=== PATIENT | male | born 1990 | race Caucasian/White ===

== ENCOUNTER 2021-04-18 09:15 | Emergency (ER) | payer BC, SELFPAY ==
[~2021-04-18] VITALS: Ht 170.2 cm; Wt 81.6 kg
[2021-04-18 09:21] VITALS: BP 123/76
[2021-04-18] MEDS ORDERED: PRED20TA5 PO (09:48)
[2021-04-18] MEDS ORDERED: ONDA8TAB87 PO (09:48)
--- NOTE | 2021-04-18 09:55 | NUR ---
NOVEL SWAB COLLECTED AND WALKED TO LAB.
--- NOTE | 2021-04-18 10:41 | NUR ---
Patient discharged with v/s stable. Written and verbal after care instructions ABOUT NAUSEA AND COUGH given and explained. Patient alert, oriented and verbalized understanding of instructions. Ambulatory with steady gait. All questions addressed prior to discharge. ID band removed. Patient advised to follow up with PMD. Rx of ZOFRAN AND PREDNISONE given. Patient educated on indication of medication including possible reaction and side effects. Opportunity to ask questions provided and answered.
== END 2021-04-18 10:41 | disposition home or self-care (01) ==
LOC: MED 09:15
DX: R05 Cough (principal); R53.1 Weakness; Z20.822 Contact with and (suspected) exposure to COVID-19
CPT/HCPCS: 99283; U0003

== ENCOUNTER 2022-04-29 14:39 | Emergency (ER) | payer BC ==
[~2022-04-29] VITALS: Ht 170.2 cm; Wt 81.6 kg
[~2022-04-29 14:39] MED LIST: ONDA8TAB87 PO; PRED20TA5 PO
[2022-04-29 14:43] VITALS: BP 157/97
--- NOTE | 2022-04-29 14:55 | NUR ---
PT AMBULATED TO ER BED 1
--- NOTE | 2022-04-29 15:06 | NUR ---
32/M C/O SHARP INTERMITTENT MID UPPER ABDOMINAL PAIN RADIATING TO BACK SINCE TODAY, DENIES N/V/D/ FEVER OR PAIN DURING URINATION. LBM TODAY, NORMAL. PMH: DENIES NKA
--- NOTE | 2022-04-29 16:09 | NUR ---
ERMD AT BEDSIDE EVALUATING PT
[2022-04-29] MEDS ORDERED: KETOROLAC 15 MG/ML VIAL ONE (16:14)
--- NOTE | 2022-04-29 16:20 | NUR ---
20G PLACED TO L AC
[2022-04-29] MEDS: KETOROLAC 15 MG/ML VIAL IM ONE (16:24)
--- NOTE | 2022-04-29 16:25 | NUR ---
ULTRASOUND AT BEDSIDE
[2022-04-29 16:28] LABS: BASOPHILS # (AUTO) 0.1 K/uL (0.00-0.22); BASOPHILS % (AUTO) 0.5 % (0.0-2.0); EOSINOPHILS # (AUTO) 0.2 K/uL (0-0.4); HEMATOCRIT 45.6 % (36-52); HEMOGLOBIN 15.7 g/dL (12.0-18.0); LYMPHOCYTES # (AUTO) 1.7 K/uL (2.0-11.5); LYMPHOCYTES % (AUTO) 17.3 % (20.5-51.1); MEAN CORPUSCULAR HEMOGLOBIN 29 pg (27-31); MEAN CORPUSCULAR HGB CONC 34 g/dL (33-37); MEAN CORPUSCULAR VOLUME 84.7 fL (80-94); MONOCYTES # (AUTO) 0.8 K/uL (0.8-1.0); MONOCYTES % (AUTO) 8.1 % (1.7-9.3); NEUTROPHILS % (AUTO) 72.1 % (42.2-75.2); PLATELET COUNT (AUTO) 168 K/uL (140-450); RED BLOOD CELL COUNT(AUTO) 5.39 MIL/uL (4.20-6.10); RED CELL DISTRIBUTION WIDTH 13.1 % (11.6-13.7); WHITE BLOOD COUNT (AUTO) 9.7 K/uL (4.8-10.8)
[2022-04-29 16:30] LABS: APPEARANCE,URINE CLEAR (CLEAR); BILIRUBIN,URINE NEGATIVE (NEGATIVE); BLOOD, URINE NEGATIVE (NEGATIVE); COLOR,URINE YELLOW (YELLOW); LEUKOCYTE ESTERASE ,URINE TRACE (NEGATIVE); NITRITE, URINE POSITIVE (NEGATIVE); PH,URINE 6.5 (5.0-9.0); UGLUCOSE NEGATIVE (NEGATIVE)
[2022-04-29 16:45] LABS: OTHER CASTS, URINE None Seen /LPF (None Seen); RBC,URINE 0-5 /HPF (0-5); WBC,URINE 0-5 /HPF (0-5)
[2022-04-29 16:51] LABS: ALBUMIN 4.2 g/dL (3.4-5.0); ANION GAP 14.1 (8-16); CARBON DIOXIDE 28.8 mmol/L (21-32); CREATININE 0.9 mg/dL (0.6-1.3); POTASSIUM 3.9 mmol/L (3.5-5.1); TOTAL BILIRUBIN 0.4 mg/dL (0.0-1.0)
--- NOTE | 2022-04-29 17:06 | NUR ---
Patient appears to be resting comfortably in bed. Vital Signs within normal limits. Respirations even and unlabored. Pt reports pain 2/10
--- NOTE | 2022-04-29 18:03 | NUR ---
ERMD AT BEDSIDE
[2022-04-29] MEDS ORDERED: IBUP-2213 PO (18:15)
[2022-04-29 18:29] VITALS: BP 150/92
== END 2022-04-29 18:29 | disposition home or self-care (01) ==
LOC: MED 14:39
DX: K80.20 Calculus of gallbladder without cholecystitis without obstruction (principal)
CPT/HCPCS: 36415; 76705; 80053; 81001; 83690; 85025; 96374; 99284; J1885; Q0092